=== PATIENT | male | born 1960 | race Caucasian/White ===

== ENCOUNTER 2021-04-11 07:42 | Emergency (ER) | payer BC ==
[~2021-04-11] VITALS: Ht 175.3 cm; Wt 83.9 kg
[2021-04-11] MEDS ORDERED: PREDNISONE50 MG PO (10:11)
== END 2021-04-11 10:39 | disposition home or self-care (01) ==
LOC: ED 07:42
DX: S63.502A Unspecified sprain of left wrist, initial encounter (principal); F17.200 Nicotine dependence, unspecified, uncomplicated; X58.XXXA Exposure to other specified factors, initial encounter; Y93.89 Activity, other specified; Y92.89 Other specified places as the place of occurrence of the external cause; Y99.8 Other external cause status